=== PATIENT | male | born 1965 | race Caucasian/White ===

== ENCOUNTER 2018-02-22 17:05 | Inpatient (IN) ==
[2018-02-22] MEDS ORDERED: Morphine Inj 4 MG/ML Vial IV.PUSH ONE (17:20)
[2018-02-22] MEDS ORDERED: Sod Chloride 0.9% Inj 1,000 ML IV.SIG ONE (17:20)
--- NOTE | 2018-02-22 17:24 | ED ---
HPI General Chief Complaint: Chest Pain Stated Complaint: Abd pain/left arm numbness Time Seen by Provider: 02/22/18 17:19 Source: patient Mode of arrival: ambulatory Limitations: no limitations History of Present Illness HPI narrative: 52-year-old male patient presents to the ER today for 9 out of 10 epigastric abdominal pains that started this morning, nausea.. He does not know of any exacerbating alleviating factors. He appears to be very anxious in the ER. He denies any chest pains, appears to be short of breath. He denies any fevers, vomiting, diarrhea, or other symptoms. Related Data Home Medications Medication Instructions Recorded Confirmed No Known Home Medications 02/22/18 02/22/18 Allergies Allergy/AdvReac Type Severity Reaction Status Date / Time No Known Allergies Allergy Verified 02/22/18 17:21 Review of Systems ROS: all other systems reviewed are negative PMFSH History History Provided By: Patient Medical History Medical History Patient denies medical problems (Acute) Surgical History Surgical History History of repair of ACL (Acute) Social History Social History Substance History: Active Abuse Second Hand Smoke Exposure: No Smoking Status: Never smoker How Often Do You Have a Drink Containing Alcohol: 4 or more times a week Recent Out of Country Travel within the Last 8 Weeks: No Exam Narrative Exam Narrative: GENERAL: Well-developed middle-age male patient currently in moderate distress. He is very anxious in the ER, awake and oriented x3. SKIN: Focused skin assessment warm/dry. HEAD: Atraumatic. Normocephalic. EYES: Pupils equal and round. No scleral icterus. No injection or drainage. ENT: No nasal bleeding or discharge. Mucous membranes pink and moist. NECK: Trachea midline. No JVD. CARDIOVASCULAR: Regular rate and rhythm. No murmur appreciated. RESPIRATORY: Moderate accessory muscle use. Clear to auscultation. Breath sounds equal bilaterally. GASTROINTESTINAL: Abdomen soft, upper abdominal tenderness without guarding or rebound, nondistended. Hepatic and splenic margins not palpable. MUSCULOSKELETAL: No obvious deformities. No clubbing. No cyanosis. No edema. NEUROLOGICAL: Awake and alert. No obvious cranial nerve deficits. Motor grossly within normal limits. Normal speech. PSYCHIATRIC: Anxious mood and affect; insight and judgment normal. Course Initial Documented Vital Signs Pulse Rate 79 02/22/18 17:12 Respiratory Rate 22 02/22/18 17:12 Blood Pressure 122/71 02/22/18 17:12 Last Documented Vital Signs Temperature 98.1 F 02/22/18 17:21 Pulse Rate 77 02/22/18 18:10 Respiratory Rate 24 02/22/18 18:10 Blood Pressure 218/99 H 02/22/18 18:20 Pulse Oximetry 97 02/22/18 18:10 Medical Decision Making MDM Narrative Medical decision making narrative: Lab work shows significant lipase elevation concerning for pancreatitis. Lactate is elevated, I am concerned that he may be dehydrated and IV fluids, pain medications and Zofran were given in the ER. CAT scan was ordered to evaluate his abdomen further. He is quite anxious and considering his alcohol history and pancreatitis, I suspect that there may be an alcohol withdrawal issue as well. He was given Ativan in the ER. His blood pressure was quite elevated as well. My plan at this point would be to admit the patient for further evaluation and treatment. Case was discussed with Dr. Ramirez for admission. Medical Screen Exam Complete: Yes Emergency Medical Condition: Yes Differential Diagnosis Differential Diagnosis: Anxiety attack versus dysrhythmias versus ACS versus acute intra-abdominal processes Lab Data Lab results reviewed: Yes I reviewed the patient's lab results. Result diagrams: 02/22/18 17:20 02/22/18 17:20 Lab Results 02/22/18 02/22/18 02/22/18 Range/Units 17:20 17:20 17:20 WBC 19.4 H (4.0-11.0) th/mm3 RBC 5.13 (4.50-5.90) mil/mm3 Hgb 18.0 H (13.0-17.0) gm/dL Hct 52.1 H (39.0-51.0) % MCV 101.5 H (80.0-100.0) fL MCH 35.1 H (27.0-34.0) pg MCHC 34.6 (32.0-36.0) % RDW 13.1 (11.6-17.2) % Plt Count 262 (150-450) th/mm3 MPV 7.8 (7.0-11.0) fL Neut % (Auto) 87.9 H (16.0-70.0) % Lymph % (Auto) 6.5 L (9.0-44.0) % Upson % (Auto) 5.1 (0.0-8.0) % Eos % (Auto) 0.1 (0.0-4.0) % Baso % (Auto) 0.4 (0.0-2.0) % Neut # (Auto) 17.0 H (1.8-7.7) th/mm3 Lymph # (Auto) 1.3 (1.0-4.8) th/mm3 Upson # (Auto) 1.0 H (0.0-0.9) th/mm3 Eos # (Auto) 0.0 (0.0-0.4) th/mm3 Baso # (Auto) 0.1 (0.0-0.2) th/mm3 WBC Differential . Differential Comment Auto diff final Sodium 139 (136-145) meq/L Potassium 3.2 L (3.5-5.1) meq/L Chloride 105 (98-107) meq/L Carbon Dioxide 19.7 L (21.0-32.0) meq/L Anion Gap 14 (5-15) meq/L BUN 13 (7-18) mg/dL Creatinine 1.25 (0.60-1.30) mg/dL Random Glucose 160 H (74-106) mg/dL Lactic Acid (0.4-2.0) mmol/L Calcium 9.6 (8.5-10.1) mg/dL Total Bilirubin 1.0 (0.2-1.0) mg/dL AST 27 (15-37) U/L ALT 31 (12-78) U/L Alkaline Phosphatase 100 (45-117) U/L Troponin I Less than 0.02 L (0.02-0.05) ng/mL Total Protein 8.3 H (6.4-8.2) g/dL Albumin 4.7 (3.4-5.0) g/dL Lipase 82727 H (73-393) U/L 18 Range/Units 17:34 WBC (4.0-11.0) th/mm3 RBC (4.50-5.90) mil/mm3 Hgb (13.0-17.0) gm/dL Hct (39.0-51.0) % MCV (80.0-100.0) fL MCH (27.0-34.0) pg MCHC (32.0-36.0) % RDW (11.6-17.2) % Plt Count (150-450) th/mm3 MPV (7.0-11.0) fL Neut % (Auto) (16.0-70.0) % Lymph % (Auto) (9.0-44.0) % Upson % (Auto) (0.0-8.0) % Eos % (Auto) (0.0-4.0) % Baso % (Auto) (0.0-2.0) % Neut # (Auto) (1.8-7.7) th/mm3 Lymph # (Auto) (1.0-4.8) th/mm3 Upson # (Auto) (0.0-0.9) th/mm3 Eos # (Auto) (0.0-0.4) th/mm3 Baso # (Auto) (0.0-0.2) th/mm3 WBC Differential Differential Comment Sodium (136-145) meq/L Potassium (3.5-5.1) meq/L Chloride (98-107) meq/L Carbon Dioxide (21.0-32.0) meq/L Anion Gap (5-15) meq/L BUN (7-18) mg/dL Creatinine (0.60-1.30) mg/dL Random Glucose (74-106) mg/dL Lactic Acid 5.3 H* (0.4-2.0) mmol/L Calcium (8.5-10.1) mg/dL Total Bilirubin (0.2-1.0) mg/dL AST (15-37) U/L ALT (12-78) U/L Alkaline Phosphatase (45-117) U/L Troponin I (0.02-0.05) ng/mL Total Protein (6.4-8.2) g/dL Albumin (3.4-5.0) g/dL Lipase (73-393) U/L Imaging Data Attestation: I personally reviewed and interpreted this imaging study as follows : Radiologist's impression: Chest X-Ray 10/13/18 17:20 CONCLUSION: No acute cardiopulmonary disease identified. Discharge Plan Discharge Disposition Patient Disposition: 30 Still Patient Discharge Condition Condition: Fair Discharge Details Anticipated Discharge Date: 02/22/18 Diagnosis: Alcohol withdrawal, Acute pancreatitis Physicians Team ED Provider: Sage Lovett Primary Care Provider: UNKNOWN, Rxs /Orders / Referrals /Forms Prescriptions: No Action No Known Home Medications RF: 0 Discharge Instructions Patient Printed Instructions: Chest Pain (ED) Discharge Interventions Interventions: Vital Signs Last Done: 02/22/18 18:45 Status ED Status: With Doctor
--- NOTE | 2018-02-22 17:45 | XR ---
EXAM DATE: 02/22/2018 5:20 PM EDT AGE/SEX: 52 years / Male INDICATIONS: Palpations. Abdominal pain. CLINICAL DATA: This is the patient's initial encounter. Patient reports that signs and symptoms have been present for 1 day and indicates a pain score of 7/10. MEDICAL/SURGICAL HISTORY: None. None. COMPARISON: No prior exams available for comparison. FINDINGS: Single AP view the chest. The lungs are clear. Cardiomediastinal silhouette within normal limits. No evidence of pleural effusion or pneumothorax. CONCLUSION: No acute cardiopulmonary disease identified. Electronically signed by: Deonte Clarke MD 02/22/2018 5:44 PM EDT
[2018-02-22 17:47] LABS: Baso # (Auto) 0.1 th/mm3 (0.0-0.2); Baso % (Auto) 0.4 % (0.0-2.0); Eos % (Auto) 0.1 % (0.0-4.0); Hematocrit 52.1 % (39.0-51.0); Lymph # (Auto) 1.3 th/mm3 (1.0-4.8); Lymph % (Auto) 6.5 % (9.0-44.0); Mean Corpuscular HGB Conc 34.6 % (32.0-36.0); Mean Corpuscular Hemoglobin 35.1 pg (27.0-34.0); Mean Corpuscular Volume 101.5 fL (80.0-100.0); Mean Platelet Volume 7.8 fL (7.0-11.0); Mono % (Auto) 5.1 % (0.0-8.0); Neut % (Auto) 87.9 % (16.0-70.0); Platelet Count 262 th/mm3 (150-450); Red Blood Count 5.13 mil/mm3 (4.50-5.90); Red Cell Distribution Width 13.1 % (11.6-17.2); White Blood Count 19.4 th/mm3 (4.0-11.0)
[2018-02-22 18:07] LABS: Albumin 4.7 g/dL (3.4-5.0); Anion Gap 14 meq/L (5-15); Aspartate Aminotransferase 27 U/L (15-37); Blood Urea Nitrogen 13 mg/dL (7-18); Calcium 9.6 mg/dL (8.5-10.1); Carbon Dioxide 19.7 meq/L (21.0-32.0); Chloride 105 meq/L (98-107); Glucose,Random 160 mg/dL (74-106); Potassium 3.2 meq/L (3.5-5.1); Sodium 139 meq/L (136-145)
[2018-02-22 18:08] LABS: Alanine Aminotransferase 31 U/L (12-78)
[2018-02-22 18:11] LABS: Alkaline Phosphatase 100 U/L (45-117); Lipase 11168 U/L (73-393); Total Protein 8.3 g/dL (6.4-8.2)
--- NOTE | 2018-02-22 19:01 | CT ---
EXAM DATE: 02/22/2018 6:19 PM EDT AGE/SEX: 52 years / Male INDICATIONS: Upper abdominal pain and flu like symptoms per patient. CLINICAL DATA: This is the patient's initial encounter. Patient reports that signs and symptoms have been present for 1 day and indicates a pain score of 9/10. MEDICAL/SURGICAL HISTORY: None. None. ORAL CONTRAST: No oral contrast ingested. RADIATION DOSE: 10.30 CTDI (mGy) COMPARISON: No prior exams available for comparison. TECHNIQUE: Multiple contiguous axial images were obtained through the abdomen and pelvis following b olus infusion of 96 ml Omnipaque 350 (iohexol) nonionic water-soluble contrast as a single exam dos e. No oral contrast ingested. Using automated exposure control and adjustment of the mA and/or kV ac cording to patient size, radiation dose was kept as low as reasonably achievable to obtain optimal di agnostic quality images. DICOM format image data is available electronically for review and comparis on. FINDINGS: Lower Lungs: There is a bleb in the lateral left midlung measuring 3.7 x 1.4 cm. Minimal bilateral at electasis. Liver: Mild diffuse hepatic steatosis. Gallbladder within normal limits. Spleen: Homogeneous density without enlargement. Pancreas: Moderate severity diffuse peripancreatic edema/stranding opacity in the peripancreatic fat. No organized peripherally enhancing fluid collection. 4 mm calcification in the region of the pancre atic head may be within the distal common duct or pancreatic head. Kidneys: Normal in size and shape. No evidence of mass or hydronephrosis. Adrenal Glands: Unremarkable. Aorta: The aorta and proximal iliac vessels are grossly unremarkable without aneurysmal dilation. Bowel/Mesentery: No evidence of bowel dilatation. No free air or free fluid. Appendix within normal limits. Abdominal Wall: Intact. Retroperitoneum: No evidence of adenopathy in the retrocrural, para-aortic, or deep pelvic regions. Bladder: Contours are smooth. Reproductive Organs: No abnormal masses or calcifications seen. Inguinal: The inguinal region is unremarkable without evidence of adenopathy. Bony Structures: Unremarkable. CONCLUSION: 1. Moderate severity peripancreatic edema indicating acute pancreatitis. Calcification in either the pancreatic head or distal common duct. 2. Hepatic steatosis. 3. Subpleural bleb in the left midlung. Electronically signed by: Deonte Clarke MD 02/22/2018 7:00 PM EDT
[2018-02-22] MEDS ORDERED: Morphine Sulfate Inj 2 MG/ML Vial IV.PUSH PRN (19:04)
[2018-02-22] MEDS ORDERED: Bisacodyl 10 MG Supp RECTAL PRN (19:05)
[2018-02-22] MEDS ORDERED: Acetaminophen 325 MG Tablet PO PRN (19:05)
--- NOTE | 2018-02-22 19:07 | P.HPIM ---
History of Present Illness Primary Care Physician: UNKNOWN History of Present Illness: This is a 52-year-old male with no significant PMH who presented to ER with complaints of chest pain, epigastric pain in addition to nausea and vomiting. Notes pain is substernal/epigastric, severe, 10/10, non-radiating, associated w / nausea/vomiting. Denies fever, chills, cough or diarrhea. On arrival, BP 221 /107, HR 77, O2 sat 97% on RA, Afebrile. W BC 19.4. Hemoglobin 18. Chemistry essentially unremarkable. Lactic acid 5.3. Troponin negative. Lipase 11,168. UA negative for UTI. CXR with no acute findings. CT Abdomen/Pelvis moderate severity. Pancreatic edema indicating acute pancreatitis, calcification in pancreatic head or distal common duct, hepatic steatosis. While in ER pt noted to be in A-fib, HR 100's, no reported h/o A-fib. - Diagnosis (1) Pancreatitis (2) Chest pain (3) Lactic acidosis (4) A-fib Inpatient Certification: I certify that the inpatient services were ordered in accordance with Medicare regulations governing the order. This includes certification that hospital inpatient services are reasonable and necessary and in the case of services not specified as inpatient-only under 42 CFR 419.22(n), that they are appropriately provided as inpatient services in accordance to with the 2-midnight benchmark under 43 CFR 412.3(e) Estimated Total Length of Stay (Days): 2 Plans for Post Hospital Care: Not yet determined Review of Systems PAST FAMILY HISTORY: Reviewed. No h/o DM or CAD All other systems reviewed negative except as stated in HPI PMFSH - History History Provided By: Patient - Medical History Medical History: Medical History (Last Reviewed 02/22/18 @ 17:52 by Sage Lovett MD) Patient denies medical problems - Surgical History Surgical History: Surgical History (Last Reviewed 02/22/18 @ 17:52 by Sage Lovett MD) History of repair of ACL - Tobacco History Second Hand Smoke Exposure: No Smoking Status: Never smoker - Alcohol History How Often Do You Have a Drink Containing Alcohol: 4 or more times a week - Substance Use History Substance History: Active Abuse - Substance Use Type Marijuana Status: Active Route Used: Inhalation - Travel History Recent Travel Out of the Country Within the Last 8 Weeks: No - Immunization History Tetanus Immunization: Unsure Medications and Allergies Active Medications: Active Medications Acetaminophen (Tylenol) 650 mg PO Q4H PRN PRN Reason: Temp > 100.4 Al Hydroxide/Mg Hydroxide (Milk Of Magnesia Liq) 30 ml PO Q12H PRN PRN Reason: Mild Constipation Bisacodyl (Dulcolax Supp) 10 mg RECTAL DAILY PRN PRN Reason: SEVERE CONSITIPATION Sodium Chloride (Ns Inj) 1,000 mls @ 100 mls/hr IV.CONT .Q10H RITO Cefepime HCl 1,000 mg/ Sodium (Chloride) 100 mls @ 200 mls/hr IV.SIG Q12H RITO Lactulose (Lactulose Liq) 30 ml PO DAILY PRN PRN Reason: SEVERE CONSITIPATION Morphine Sulfate (Morphine Inj) 2 mg IV.PUSH Q4H PRN PRN Reason: PAIN 6-10 Ondansetron HCl (Zofran Inj) 4 mg IV.PUSH Q6H PRN PRN Reason: NAUSEA OR VOMITING Pantoprazole Sodium (Protonix Inj) 40 mg IV.PUSH Q12H RITO Senna/Docusate Sodium (Dasha-Colace) 1 tab PO BID RITO Sennosides (Senokot) 17.2 mg PO Q12H PRN PRN Reason: Moderate Constipation Sodium Chloride (Ns Flush) 2 ml IV.FLUSH PRN PRN PRN Reason: FLUSH AFTER USING IV ACCESS Allergies Allergy/AdvReac Type Severity Reaction Status Date / Time No Known Allergies Allergy Verified 02/22/18 17:21 Home Medications Medication Instructions Recorded Confirmed Type No Known Home Medications 02/22/18 02/22/18 History Exam Vital signs: Vital Signs 02/22/18 17:12 02/22/18 17:21 02/22/18 18:10 Temperature 98.1 F Pulse Rate 79 77 Respiratory Rate 22 24 Blood Pressure 122/71 221/107 H Pulse Oximetry 97 02/22/18 18:20 02/22/18 18:45 Temperature Pulse Rate 92 H Respiratory Rate 20 Blood Pressure 218/99 H 206/112 H Pulse Oximetry 99 Intake & Output 02/22/18 02/22/18 02/23/18 06:59 18:59 06:59 Intake Total 1000 / 1000 Output Total 100 / 100 Balance 900 / 900 Weight 86.183 kg Intake: IV 1000 / 1000 NS Inj 1,000 ML @ Wide Open IV. 1000 / 1000 SIG BOLUS ONE Rx#:[id number] Output: Emesis 100 / 100 Other: # Emeses 1 Narrative: PE: GENERAL: Middle-aged white male in no acute distress, appears younger than stated age. SKIN: Focused skin assessment warm and dry. HEENT: PERRLA, EOMI. No scleral icterus or conjunctival pallor. No lid lag or facial droop. CARDIOVASCULAR: Irregularly irregular, in A. fib. No obvious murmurs to auscultation. No chest tenderness to palpation. RESPIRATORY: No obvious rhonchi or wheezing. Clear to auscultation. Breath sounds equal bilaterally. GASTROINTESTINAL: Abdomen soft, epigastric tenderness to palpation, nondistended. BS normal. MUSCULOSKELETAL: Extremities without clubbing, cyanosis, or edema. No obvious deformities. NEUROLOGICAL: Awake, alert and oriented x4. No focal neurologic deficits. Moving both upper and lower extremities spontaneously. PSYCHIATRIC: Appropriate mood and affect. Insight and judgment normal. Results - Labs CBC & Chem 7: 02/22/18 17:20 02/22/18 17:20 Labs: Short CBC 02/22/18 Range/Units 17:20 WBC 19.4 H (4.0-11.0) th/mm3 Hgb 18.0 H (13.0-17.0) gm/dL Hct 52.1 H (39.0-51.0) % Plt Count 262 (150-450) th/mm3 BMP 02/22/18 17:20 Sodium 139 Potassium 3.2 L Chloride 105 Carbon Dioxide 19.7 L BUN 13 Creatinine 1.25 Calcium 9.6 Cardiac Enzymes 02/22/18 Range/Units 17:20 Troponin I Less than 0.02 L (0.02-0.05) ng/mL Liver Function 02/22/18 Range/Units 17:20 Total Bilirubin 1.0 (0.2-1.0) mg/dL AST 27 (15-37) U/L ALT 31 (12-78) U/L Alkaline Phosphatase 100 (45-117) U/L Albumin 4.7 (3.4-5.0) g/dL - Imaging Impressions Abdomen/Pelvis CT 02/22/18 17:20 CONCLUSION: 1. Moderate severity peripancreatic edema indicating acute pancreatitis. Calcification in either the pancreatic head or distal common duct. 2. Hepatic steatosis. 3. Subpleural bleb in the left midlung. Chest X-Ray 02/22/18 17:20 CONCLUSION: No acute cardiopulmonary disease identified. Caprini VTE Risk Assessment Caprini VTE Risk Assessment: No/Low Risk (score <= 1) Caprini Risk Assessment Model: Point Value = 1 Point Value = 2 Point Value = 3 Point Value = 5 Age 41-60 Minor surgery BMI > 25 kg/m2 Swollen legs Varicose veins or History of unexplained or recurrent spontaneous Oral contraceptives or hormone replacement Sepsis (< 1 month) Serious lung disease, including pneumonia (< 1 month) Abnormal pulmonary function Acute myocardial infarction Congestive heart failure (< 1 month) History of inflammatory bowel disease Medical patient at bed rest Age 61-74 Arthroscopic surgery Major open surgery (> 45 min) Laparoscopic surgery (> 45 min) Malignancy Confined to bed (> 72 hours) Immobilizing plaster cast Central venous access Age >= 75 History of VTE Family history of VTE Factor V Leiden Prothrombin [id number] Lupus anticoagulant Anticardiolipin antibodies Elevated serum homocysteine Heparin-induced thrombocytopenia Other congenital or acquired thrombophilia Stroke (< 1 month) Elective arthroplasty Hip, pelvis, or leg fracture Acute spinal cord injury (< 1 month) Prophylaxis Regimen: Total Risk Factor Score Risk Level Prophylaxis Regimen 0-1 Low Early ambulation 2 Moderate Order ONE of the following: *Sequential Compression Device (SCD) *Heparin 5000 units SQ BID 3-4 Higher Order ONE of the following medications: *Heparin 5000 units SQ TID *Enoxaparin/Lovenox 40 mg SQ daily (WT < 150 kg, CrCl > 30 mL/min) *Enoxaparin/Lovenox 30 mg SQ daily (WT < 150 kg, CrCl > 10-29 mL/min) *Enoxaparin/Lovenox 30 mg SQ BID (WT < 150 kg, CrCl > 30 mL/min) AND/OR *Sequential Compression Device (SCD) 5 or more Highest Order ONE of the following medications: *Heparin 5000 units SQ TID (Preferred with Epidurals) *Enoxaparin/Lovenox 40 mg SQ daily (WT < 150 kg, CrCl > 30 mL/min) *Enoxaparin/Lovenox 30 mg SQ daily (WT < 150 kg, CrCl > 10-29 mL/min) *Enoxaparin/Lovenox 30 mg SQ BID (WT < 150 kg, CrCl > 30 mL/min) AND *Sequential Compression Device (SCD) Assessment and Plan - Assessment (1) Pancreatitis Code(s): K85.90 - Acute pancreatitis without necrosis or infection, unspecified Status: Acute (2) Chest pain Code(s): R07.9 - Chest pain, unspecified Status: Acute (3) Lactic acidosis Code(s): E87.2 - Acidosis Status: Acute (4) A-fib Code(s): I48.91 - Unspecified atrial fibrillation Status: Acute - Plan A/P: 1. Pancreatitis: Lipase 11,168, CT Abd/Pelvis w/ moderate severity peripancreatic edema indicative of acute pancreatitis, images reviewed. NPO, IVF, Protonix IV, check repeat lipase in am. 2. SIRS: HR 103, WBC 19, in light of pancreatitis w/ lactic acidosis will start on Cefepime IV, IVF for hydration. 3. Chest Pain: Likely secondary to pancreatitis, initial trop negative, check serial cardiac enzymes, Consult Cardiology as needed. 4. A-fib: New Onset. Denies h/o A-fib, possibly related to severe dehydration from pancreatitis, nausea/vomiting, start Metoprolol and ASA, Check Echo to eval for valvular abnormalities/cardiomyopathy, Consult Cardiology as needed for further eval/recommendations. 5. HTN: Uncontrolled. BP 190-200's systolic, likely compounded by pain complaints, Metoprolol 50mg bid, monitor BP closely, antihypertensives as needed for BP >180 6. Lactic Acidosis: Lactic Acid 5.3, likely related to dehydration, however in light of leukocytosis and acute pancreatitis will start Cefepime IV. CXR w/ no acute findings, images reviewed. IVF for hydration, repeat Lactic Acid. 7. DVT Prophylaxis: SCD/Teds 8. Social work for d/c planning as needed 9. Case discussed w/ ER physician at length, labs/records/imaging reviewed by me.
[2018-02-22 19:17] LABS: Bilirubin,Urine Negative (Negative); Clarity,Urine Clear (Clear); Color,Urine Yellow (Yellw/Straw); Glucose,Urine (UA) 50 mg/dL (Negative); Leukocyte Esterase,Urine Negative (Negative); Mucus,Urine Few /lpf (Occasional); Nitrite,Urine Negative (Negative); Specific Gravity,Urine 1.029 (1.002-1.035)
[2018-02-22] MEDS: Sod Chloride 0.9% Inj 1,000 ML IV.CONT SCH ×2 (19:28→23:38)
[2018-02-22] MEDS: Metoprolol Tartrate 50 MG Tablet PO SCH ×2 (20:41→22:11)
[2018-02-22] MEDS: Pantoprazole Inj 40 MG Vial IV.PUSH SCH (20:44)
[2018-02-22] MEDS: Senna/Docusate Sodium 8.6/50 MG Tablet PO SCH (23:09)
[2018-02-23] MEDS ORDERED: HYDROmorphone PF Inj 2 MG/ML Vial IV.PUSH ONE (01:34)
[2018-02-23] MEDS: Sod Chloride 0.9% Inj 1,000 ML IV.CONT SCH ×3 (05:21→22:26)
[2018-02-23 07:18] LABS: Baso % (Auto) 0.1 % (0.0-2.0); Hematocrit 40.5 % (39.0-51.0); Hemoglobin 14.1 gm/dL (13.0-17.0); Lymph # (Auto) 0.7 th/mm3 (1.0-4.8); Lymph % (Auto) 4.3 % (9.0-44.0); Mean Corpuscular HGB Conc 34.9 % (32.0-36.0); Mean Corpuscular Hemoglobin 35.1 pg (27.0-34.0); Mean Corpuscular Volume 100.7 fL (80.0-100.0); Mean Platelet Volume 7.4 fL (7.0-11.0); Mono % (Auto) 5.8 % (0.0-8.0); Neut # (Auto) 15.8 th/mm3 (1.8-7.7); Neut % (Auto) 89.8 % (16.0-70.0); Platelet Count 235 th/mm3 (150-450); Red Blood Count 4.02 mil/mm3 (4.50-5.90); Red Cell Distribution Width 12.7 % (11.6-17.2); White Blood Count 17.6 th/mm3 (4.0-11.0)
[2018-02-23 07:51] LABS: Alanine Aminotransferase 25 U/L (12-78); Albumin 3.5 g/dL (3.4-5.0); Alkaline Phosphatase 75 U/L (45-117); Anion Gap 6 meq/L (5-15); Aspartate Aminotransferase 12 U/L (15-37); Blood Urea Nitrogen 13 mg/dL (7-18); Calcium 8.1 mg/dL (8.5-10.1); Carbon Dioxide 28.5 meq/L (21.0-32.0); Chloride 106 meq/L (98-107); Glomerular Filtration Rate 86 mL/min (>89); Glucose,Random 164 mg/dL (74-106); Lipase 4274 U/L (73-393); Potassium 4.6 meq/L (3.5-5.1); Sodium 140 meq/L (136-145); Total Protein 6.5 g/dL (6.4-8.2)
[2018-02-23] MEDS: Pantoprazole Inj 40 MG Vial IV.PUSH SCH ×2 (09:03→20:52)
[2018-02-23] MEDS: Metoprolol Tartrate 50 MG Tablet PO SCH ×2 (09:04→20:52)
[2018-02-23] MEDS: Senna/Docusate Sodium 8.6/50 MG Tablet PO SCH ×2 (09:04→20:52)
[2018-02-23] MEDS: HYDROmorphone PF Inj 2 MG/ML Vial IV.PUSH PRN ×4 (11:35→23:27)
--- NOTE | 2018-02-23 11:59 | P.CONCA ---
History of Present Illness Service: Cardiology Consult date: 02/23/18 Reason for Consult: Elevated troponin Primary Care Provider: UNKNOWN Chief Complaint: Non-ST elevation myocardial infarction History of Present Illness: This is a 52-year-old gentleman without past medical history who presents to the emergency department complains of epigastric pain associated with nausea and vomiting. Patient states that he had a acute onset of this epigastric discomfort rates it a 02/19. He came in yesterday was noted to have elevated systolic blood pressure greater than 200 mmHg. Initial chemistry workup was negative. His lactic acid was elevated. He had also significant elevated lipase level. He has history of heavy alcohol use. CT scan of the abdomen showed pancreatic edema consistent with acute pancreatitis. Patient was also dehydrated. They trended troponins which were in the intermediate range and came up to slightly more than 0.1 mg/dL. We are consulted for further recommendations. Patient has no prior history of known heart disease. No chest pain. Electrocardiogram was unremarkable. Review of Systems All other systems reviewed negative except as stated in HPI [facility] - History History Provided By: Patient - Medical History Medical History: Medical History (Last Reviewed 02/22/18 @ 17:52 by Sage Lovett MD) Patient denies medical problems - Surgical History Surgical History: Surgical History (Last Reviewed 02/22/18 @ 17:52 by Sage Lovett MD) History of repair of ACL - Tobacco History Second Hand Smoke Exposure: No Tobacco Use In Past 30 Days: No Smoking Status: Former smoker Tobacco Type: Cigarettes - Alcohol History How Often Do You Have a Drink Containing Alcohol: 4 or more times a week - Substance Use History Substance History: Active Abuse - Substance Use Type Marijuana Type: marijuana Status: Active Route Used: Inhalation Frequency: every once in a while Reason for Use: Calm Down - Travel History Recent Travel in the [place] Within the Last 8 Weeks: No Recent Travel Out of the Country Within the Last 8 Weeks: No - Immunization History Tetanus Immunization: Unsure Medications and Allergies Active Medications: Active Medications Acetaminophen (Tylenol) 650 mg PO Q4H PRN PRN Reason: Temp > 100.4 Al Hydroxide/Mg Hydroxide (Milk Of Magnesia Liq) 30 ml PO Q12H PRN PRN Reason: Mild Constipation Aspirin (Ecotrin) 81 mg PO DAILY [facility] Last Admin: 02/23/18 09:04 Dose: 81 mg Bisacodyl (Dulcolax Supp) 10 mg RECTAL DAILY PRN PRN Reason: SEVERE CONSITIPATION Hydromorphone HCl (Dilaudid Pf Inj) 1 mg IV.PUSH Q4H PRN PRN Reason: BREAKTHROUGH PAIN Last Admin: 02/23/18 11:35 Dose: 1 mg Sodium Chloride (Ns Inj) 1,000 mls @ 100 mls/hr IV.CONT .Q10H [facility] Last Admin: 02/23/18 05:21 Dose: Not Given Cefepime HCl 1,000 mg/ Sodium (Chloride) 100 mls @ 200 mls/hr IV.SIG Q12H [facility] Last Admin: 02/23/18 09:03 Dose: 200 mls/hr Calcium Gluconate 1 gm/ Sodium (Chloride) 100 mls @ 100 mls/hr IV.SIG ONCE ONE Stop: 02/23/18 13:59 Lactulose (Lactulose Liq) 30 ml PO DAILY PRN PRN Reason: SEVERE CONSITIPATION Lorazepam (Ativan Inj) 1 mg IV.PUSH Q4H PRN PRN Reason: AGITATION/WITHDRAWAL Last Admin: 02/22/18 23:37 Dose: 1 mg Metoprolol Tartrate (Lopressor) 50 mg PO BID [facility] Last Admin: 02/23/18 09:04 Dose: 50 mg Morphine Sulfate (Morphine Inj) 2 mg IV.PUSH Q4H PRN PRN Reason: PAIN 6-10 Last Admin: 02/23/18 00:40 Dose: 2 mg Ondansetron HCl (Zofran Inj) 4 mg IV.PUSH Q6H PRN PRN Reason: NAUSEA OR VOMITING Pantoprazole Sodium (Protonix Inj) 40 mg IV.PUSH Q12H [facility] Last Admin: 02/23/18 09:03 Dose: 40 mg Senna/Docusate Sodium (Dasha-Colace) 1 tab PO BID [facility] Last Admin: 02/23/18 09:04 Dose: Not Given Sennosides (Senokot) 17.2 mg PO Q12H PRN PRN Reason: Moderate Constipation Sodium Chloride (Ns Flush) 2 ml IV.FLUSH PRN PRN PRN Reason: FLUSH AFTER USING IV ACCESS Allergies Allergy/AdvReac Type Severity Reaction Status Date / Time No Known Allergies Allergy Verified 02/22/18 17:21 Home Medications Medication Instructions Recorded Confirmed Type No Known Home Medications 02/22/18 02/22/18 History Exam Vital signs: Vital Signs 02/22/18 17:12 02/22/18 17:21 02/22/18 18:10 Temperature 98.1 F Pulse Rate 79 77 Respiratory Rate 22 24 Blood Pressure 122/71 221/107 H Pulse Oximetry 97 02/22/18 18:20 02/22/18 18:45 02/22/18 19:26 Temperature Pulse Rate 92 H 101 H Respiratory Rate 20 20 Blood Pressure 218/99 H 206/112 H 195/101 H Pulse Oximetry 99 02/22/18 22:10 02/22/18 23:00 02/23/18 00:00 Temperature 97.8 F Pulse Rate 108 H 105 H 98 H Respiratory Rate 16 18 Blood Pressure 181/119 H 183/128 H Pulse Oximetry 97 02/23/18 01:00 02/23/18 03:00 02/23/18 04:00 Temperature 98.0 F Pulse Rate 47 L 114 H 110 H Respiratory Rate 18 Blood Pressure 140/104 H Pulse Oximetry 91 L 02/23/18 05:00 02/23/18 06:00 02/23/18 07:00 Temperature 97.8 F Pulse Rate 108 H 102 H 94 H Respiratory Rate 18 Blood Pressure 151/116 H Pulse Oximetry 93 L 02/23/18 08:00 02/23/18 09:00 02/23/18 10:00 Temperature Pulse Rate 94 H 96 H 90 Respiratory Rate Blood Pressure Pulse Oximetry Intake & Output 02/22/18 02/23/18 02/23/18 18:59 06:59 18:59 Intake Total 1000 / 1000 100 / 100 Output Total 100 / 100 200 / 200 Balance 900 / 900 -100 / -100 Weight 86.183 kg 84.5 kg Intake: IV 1000 / 1000 100 / 100 NS Inj 1,000 ML @ 100 mls/hr IV 0 / 0 .CONT .Q10H [facility] Rx#:[id number] Maxipime Inj 1,000 MG In NS Inj 100 / 100 100 ML @ 200 mls/hr IV.SIG Q12H [facility] Rx#:[id number] NS Inj 1,000 ML @ Wide Open IV. 1000 / 1000 SIG BOLUS ONE Rx#:[id number] Output: Urine 200 / 200 Emesis 100 / 100 Other: Date of Last Bowel Movement 02/22/18 # Emeses 1 Weight On Admission 86.13 kg - Constitutional no acute distress - Routine HEENT Exam Eye: Present: EOMI, PERRL ENT: Present: mucous membranes dry - Routine Neck Exam Absent: JVD - Routine Respiratory Exam Present: CTA bilaterally - Routine Cardiovascular Exam Present: RRR. Absent: murmur - Routine Abdominal Exam Present: normoactive bowel sounds - Routine Extremities Exam Absent: edema - Routine Neurological Exam Present: CN II-XII intact. Absent: sensory deficit, motor deficit Results 02/23/18 06:56 02/23/18 06:56 Cardiac Enzymes 02/22/18 02/22/18 02/23/18 Range/Units 17:20 17:20 00:33 AST 27 (15-37) U/L Troponin I Less than 0.02 L 0.08 H (0.02-0.05) ng/mL 02/23/18 02/23/18 Range/Units 06:56 06:56 AST 12 L (15-37) U/L Troponin I 0.15 H (0.02-0.05) ng/mL CBC 02/22/18 02/23/18 Range/Units 17:20 06:56 WBC 19.4 H 17.6 H (4.0-11.0) th/mm3 RBC 5.13 4.02 L (4.50-5.90) mil/mm3 Hgb 18.0 H 14.1 D (13.0-17.0) gm/dL Hct 52.1 H 40.5 (39.0-51.0) % Plt Count 262 235 (150-450) th/mm3 Neut # (Auto) 17.0 H 15.8 H (1.8-7.7) th/mm3 Lymph # (Auto) 1.3 0.7 L (1.0-4.8) th/mm3 [place] # (Auto) 1.0 H 1.0 H (0.0-0.9) th/mm3 Eos # (Auto) 0.0 0.0 (0.0-0.4) th/mm3 Baso # (Auto) 0.1 0.0 (0.0-0.2) th/mm3 Comprehensive Metabolic Panel 02/22/18 02/23/18 Range/Units 17:20 06:56 Sodium 139 140 (136-145) meq/L Potassium 3.2 L 4.6 D (3.5-5.1) meq/L Chloride 105 106 (98-107) meq/L Carbon Dioxide 19.7 L 28.5 (21.0-32.0) meq/L BUN 13 13 (7-18) mg/dL Creatinine 1.25 0.92 (0.60-1.30) mg/dL Calcium 9.6 8.1 L D (8.5-10.1) mg/dL AST 27 12 L (15-37) U/L ALT 31 25 (12-78) U/L Alkaline Phosphatase 100 75 (45-117) U/L Total Protein 8.3 H 6.5 D (6.4-8.2) g/dL Albumin 4.7 3.5 D (3.4-5.0) g/dL Intake and Output 02/22/18 02/23/18 02/23/18 22:59 06:59 14:59 Intake Total 1100 / 1100 0 / 0 Output Total 100 / 100 200 / 200 Balance 1000 / 1000 -200 / -200 Intake: IV 1100 / 1100 0 / 0 NS Inj 1,000 ML @ 100 mls/hr IV 0 / 0 .CONT .Q10H [facility] Rx#:[id number] Maxipime Inj 1,000 MG In NS Inj 100 / 100 100 ML @ 200 mls/hr IV.SIG Q12H [facility] Rx#:[id number] NS Inj 1,000 ML @ Wide Open IV. 1000 / 1000 SIG BOLUS ONE Rx#:[id number] Output: Urine 200 / 200 Emesis 100 / 100 Other: Date of Last Bowel Movement 02/22/18 # Emeses 1 Weight 84.6 kg 84.5 kg Weight On Admission 86.13 kg - Imaging and Cardiology Imaging: Impressions Abdomen/Pelvis CT 02/22/18 17:20 CONCLUSION: 1. Moderate severity peripancreatic edema indicating acute pancreatitis. Calcification in either the pancreatic head or distal common duct. 2. Hepatic steatosis. 3. Subpleural bleb in the left midlung. Chest X-Ray 02/22/18 17:20 CONCLUSION: No acute cardiopulmonary disease identified. EKG interpretations - Dysrhythmias Sinus rhythms and dysrhythmias: sinus rhythm (Premature atrial complexes) - Blocks, axis, hypertrophy, ST abn Repolarization changes or abnormalities: nonspecific abnormality, ST segment, and/or T wave Assessment and Plan - Assessment (1) Elevated troponin Code(s): R74.8 - Abnormal levels of other serum enzymes Status: Acute (2) Non-ST elevation myocardial infarction (NSTEMI) Code(s): I21.4 - Non-ST elevation (NSTEMI) myocardial infarction Status: Acute - Plan Patient presents with symptoms consistent with acute pancreatitis confirmed by abdominal imaging. Patient is also dehydrated. Initial cardiac biomarkers were negative and trended into the intermediate range. This is likely a demand mediated event in the setting of dehydration. The electrocardiogram shows no significant ischemic changes. Patient has underlying sinus rhythm with premature atrial complexes. Patient has no significant cardiovascular risk factors. This is clearly not a thrombotic mediated event. We will plan for Lexiscan just to rule out significant ischemic territory. If the stress test is otherwise unremarkable, he can follow-up with his outpatient primary care physician.
[2018-02-23] MEDS ORDERED: LORazepam 1 MG Tablet PO PRN (12:37)
[2018-02-23] MEDS ORDERED: Haloperidol Inj 5 MG/ML Ampul IV.PUSH PRN (12:37)
[2018-02-23] MEDS ORDERED: Calcium Gluconate Inj 1 GM in Sodium Chlor 0.9% Inj 90 ML IV.SIG ONE (13:00)
--- NOTE | 2018-02-23 15:16 | P.PNIM ---
Subjective Interval history: Patient reports is feeling better after receiving Dilaudid. Epigastric pain is much improved. He denies shortness of breath. Physical Exam Vital signs: Vital Signs 02/22/18 17:12 02/22/18 17:21 02/22/18 18:10 Temperature 98.1 F Pulse Rate 79 77 Respiratory Rate 22 24 Blood Pressure 122/71 221/107 H Pulse Oximetry 97 02/22/18 18:20 02/22/18 18:45 02/22/18 19:26 Temperature Pulse Rate 92 H 101 H Respiratory Rate 20 20 Blood Pressure 218/99 H 206/112 H 195/101 H Pulse Oximetry 99 02/22/18 22:10 02/22/18 23:00 02/23/18 00:00 Temperature 97.8 F Pulse Rate 108 H 105 H 98 H Respiratory Rate 16 18 Blood Pressure 181/119 H 183/128 H Pulse Oximetry 97 02/23/18 01:00 02/23/18 03:00 02/23/18 04:00 Temperature 98.0 F Pulse Rate 47 L 114 H 110 H Respiratory Rate 18 Blood Pressure 140/104 H Pulse Oximetry 91 L 02/23/18 05:00 02/23/18 06:00 02/23/18 07:00 Temperature 97.8 F Pulse Rate 108 H 102 H 94 H Respiratory Rate 18 Blood Pressure 151/116 H Pulse Oximetry 93 L 02/23/18 08:00 02/23/18 09:00 02/23/18 10:00 Temperature Pulse Rate 94 H 96 H 90 Respiratory Rate Blood Pressure Pulse Oximetry 02/23/18 11:00 02/23/18 12:00 02/23/18 12:10 Temperature 98.1 F Pulse Rate 84 92 H Respiratory Rate 18 18 Blood Pressure 157/112 H Pulse Oximetry 97 02/23/18 13:00 Temperature Pulse Rate 90 Respiratory Rate Blood Pressure Pulse Oximetry Intake & Output 02/22/18 02/23/18 02/23/18 18:59 06:59 18:59 Intake Total 1000 / 1000 100 / 100 1200 / 1200 Output Total 100 / 100 200 / 200 Balance 900 / 900 -100 / -100 1200 / 1200 Weight 86.183 kg 84.5 kg Intake: IV 1000 / 1000 100 / 100 1200 / 1200 NS Inj 1,000 ML @ 100 mls/hr IV 0 / 0 1000 / 1000 .CONT .Q10H [facility] Rx#:[id number] Calcium Gluconate Inj 1 GM In 100 / 100 NS Inj 90 ML @ 100 mls/hr IV. SIG ONCE ONE Rx#:[id number] Maxipime Inj 1,000 MG In NS Inj 100 / 100 100 / 100 100 ML @ 200 mls/hr IV.SIG Q12H [facility] Rx#:[id number] NS Inj 1,000 ML @ Wide Open IV. 1000 / 1000 SIG BOLUS ONE Rx#:[id number] Output: Urine 200 / 200 Emesis 100 / 100 Other: Date of Last Bowel Movement 02/22/18 # Emeses 1 Weight On Admission 86.13 kg Narrative: GENERAL: This is a well-nourished, well-developed patient, in no apparent distress. CARDIOVASCULAR: Normal rate and regular rhythm without murmurs, gallops, or rubs. RESPIRATORY: Good respiratory efforts. Breath sounds equal and clear to auscultation bilaterally. GASTROINTESTINAL: Abdomen soft, mild tenderness to deep palpation in the midepigastric region. Normal active bowel sounds MUSCULOSKELETAL: Extremities without cyanosis, or edema. NEURO: Alert & Oriented x4 to person, place, time, situation. Moves all ext x4 PSYCH: Appropriate mood and affect. Results - Labs CBC & Chem 7: 02/23/18 06:56 02/23/18 06:56 Laboratory Results - last 24 hr 02/22/18 02/22/18 02/22/18 17:20 17:20 17:20 WBC 19.4 H RBC 5.13 Hgb 18.0 H Hct 52.1 H MCV 101.5 H MCH 35.1 H MCHC 34.6 RDW 13.1 Plt Count 262 MPV 7.8 Neut % (Auto) 87.9 H Lymph % (Auto) 6.5 L Morton % (Auto) 5.1 Eos % (Auto) 0.1 Baso % (Auto) 0.4 Neut # (Auto) 17.0 H Lymph # (Auto) 1.3 [place] # (Auto) 1.0 H Eos # (Auto) 0.0 Baso # (Auto) 0.1 WBC Differential . Differential Comment Auto diff final Sodium 139 Potassium 3.2 L Chloride 105 Carbon Dioxide 19.7 L Anion Gap 14 BUN 13 Creatinine 1.25 Estimated GFR Random Glucose 160 H Lactic Acid Calcium 9.6 Total Bilirubin 1.0 AST 27 ALT 31 Alkaline Phosphatase 100 Troponin I Less than 0.02 L Total Protein 8.3 H Albumin 4.7 Lipase 32085 H Urine Color Urine Clarity Urine pH Ur Specific [place] Urine Protein Urine Glucose (UA) Urine Ketones Urine Occult Blood Urine Nitrate Urine Bilirubin Urine Urobilinogen Ur Leukocyte Esterase Urine RBC Urine WBC Urine Mucus Micro UA Comment Ur Microscopic Review Urine Culture Comments 02/22/18 02/22/18 02/23/18 17:34 18:50 00:33 WBC RBC Hgb Hct MCV MCH MCHC RDW Plt Count MPV Neut % (Auto) Lymph % (Auto) Morton % (Auto) Eos % (Auto) Baso % (Auto) Neut # (Auto) Lymph # (Auto) [place] # (Auto) Eos # (Auto) Baso # (Auto) WBC Differential Differential Comment Sodium Potassium Chloride Carbon Dioxide Anion Gap BUN Creatinine Estimated GFR Random Glucose Lactic Acid 5.3 H* 1.4 Calcium Total Bilirubin AST ALT Alkaline Phosphatase Troponin I Total Protein Albumin Lipase Urine Color Yellow Urine Clarity Clear Urine pH 7.0 Ur Specific [place] 1.029 Urine Protein Negative Urine Glucose (UA) 50 Urine Ketones 20 Urine Occult Blood Negative Urine Nitrate Negative Urine Bilirubin Negative Urine Urobilinogen Less than 2 Ur Leukocyte Esterase Negative Urine RBC 1 Urine WBC Less than 1 Urine Mucus Few H Micro UA Comment Culture not ind Ur Microscopic Review Not Reportable Urine Culture Comments Culture not ind 02/23/18 02/23/18 02/23/18 00:33 06:56 06:56 WBC 17.6 H RBC 4.02 L Hgb 14.1 D Hct 40.5 MCV 100.7 H MCH 35.1 H MCHC 34.9 RDW 12.7 Plt Count 235 MPV 7.4 Neut % (Auto) 89.8 H Lymph % (Auto) 4.3 L Morton % (Auto) 5.8 Eos % (Auto) 0.0 Baso % (Auto) 0.1 Neut # (Auto) 15.8 H Lymph # (Auto) 0.7 L [place] # (Auto) 1.0 H Eos # (Auto) 0.0 Baso # (Auto) 0.0 WBC Differential . Differential Comment Auto diff final Sodium 140 Potassium 4.6 D Chloride 106 Carbon Dioxide 28.5 Anion Gap 6 BUN 13 Creatinine 0.92 Estimated GFR 86 L Random Glucose 164 H Lactic Acid Calcium 8.1 L D Total Bilirubin 1.1 H AST 12 L ALT 25 Alkaline Phosphatase 75 Troponin I 0.08 H Total Protein 6.5 D Albumin 3.5 D Lipase 4274 H Urine Color Urine Clarity Urine pH Ur Specific [place] Urine Protein Urine Glucose (UA) Urine Ketones Urine Occult Blood Urine Nitrate Urine Bilirubin Urine Urobilinogen Ur Leukocyte Esterase Urine RBC Urine WBC Urine Mucus Micro UA Comment Ur Microscopic Review Urine Culture Comments 02/23/18 02/23/18 06:56 06:56 WBC RBC Hgb Hct MCV MCH MCHC RDW Plt Count MPV Neut % (Auto) Lymph % (Auto) [place] % (Auto) Eos % (Auto) Baso % (Auto) Neut # (Auto) Lymph # (Auto) [place] # (Auto) Eos # (Auto) Baso # (Auto) WBC Differential Differential Comment Sodium Potassium Chloride Carbon Dioxide Anion Gap BUN Creatinine Estimated GFR Random Glucose Lactic Acid 1.2 Calcium Total Bilirubin AST ALT Alkaline Phosphatase Troponin I 0.15 H Total Protein Albumin Lipase Urine Color Urine Clarity Urine pH Ur Specific [place] Urine Protein Urine Glucose (UA) Urine Ketones Urine Occult Blood Urine Nitrate Urine Bilirubin Urine Urobilinogen Ur Leukocyte Esterase Urine RBC Urine WBC Urine Mucus Micro UA Comment Ur Microscopic Review Urine Culture Comments - Imaging Impressions Abdomen/Pelvis CT 02/22/18 17:20 CONCLUSION: 1. Moderate severity peripancreatic edema indicating acute pancreatitis. Calcification in either the pancreatic head or distal common duct. 2. Hepatic steatosis. 3. Subpleural bleb in the left midlung. Chest X-Ray 02/22/18 17:20 CONCLUSION: No acute cardiopulmonary disease identified. Assessment and Plan - Assessment (1) Pancreatitis Code(s): K85.90 - Acute pancreatitis without necrosis or infection, unspecified Status: Acute (2) Chest pain Code(s): R07.9 - Chest pain, unspecified Status: Acute (3) Lactic acidosis Code(s): E87.2 - Acidosis Status: Acute (4) A-fib Code(s): I48.91 - Unspecified atrial fibrillation Status: Acute - Plan 52-year-old male with: Acute pancreatitis: Probably alcoholic pancreatitis. He admits to drinking half a bottle of wine daily. CT of the abdomen shows moderate severity diffuse peripancreatic edema/stranding opacity in the peripancreatic fat. No organized peripherally enhancing fluid collection. 4 mm calcification in the region of the pancreatic head may be within the distal common duct or pancreatic head. -Lipase 11,000 on presentation. Down to 4000. -Continue supportive care with IV fluid. Pain control. -Check lipids Chest pain/elevated troponin: - Discussed with senior java software developer, Dr. miramontes. Likely secondary to dehydration from pancreatitis. - Nuclear stress test ordered. Hypertension: Uncontrolled. Does not take antihypertensives at home. - Continue metoprolol 50 mg twice daily. Systolic blood pressures were in the 200s on arrival. Suspect untreated hypertension. - Add amlodipine. Clonidine PRN. Afib: Brief episode. Back in sinus rhythm. Likely secondary to dehydration from pancreatitis. - Continue to monitor on telemetry. IV fluid. Leukocytosis and lactic acidosis: Leukocytosis quickly improved with IV hydration. Lactic acidosis resolved. - Do not suspect infection at this point. Discontinue empiric antibiotics. Alcohol abuse: - Start CIWA protocol. DVT Prophylaxis: SCD/Teds
[2018-02-23] MEDS ORDERED: Regadenoson Inj 0.4 MG/5 ML Syringe IV.PUSH ONE (15:52)
--- NOTE | 2018-02-23 16:00 | ECG ---
Date Performed: 02/22/2018 Time Performed: 17:16:29 PTAGE: 52 years EKG: There is an underlying Sinus rhythm with variable TN intervals with some first degree AV block and blocked PACs with junctional escape b eat. Nonspecific T-wave change ABNORMAL RHYTHM ECG NO PREVIOUS TRACING DOCTOR: Ishan Tai Interpretating Date/Time 02/23/2018 15:57:49
--- NOTE | 2018-02-23 17:05 | NM ---
EXAM DATE: 02/23/2018 2:24 PM EDT AGE/SEX: 52 years / Male INDICATIONS:Myocardial infarction. . Epigastric pain associated with nausea and vomiting. CLINICAL DATA: This is the patient's initial encounter. Patient reports that signs and symptoms have been present for 1 day and indicates a pain score of 10/10. MEDICAL/SURGICAL HISTORY: . . Left ACL repair. COMPARISON: No prior exams available for comparison. DOSE: 8.8 mCi Tc 99m Myoview at rest 26.2 mCi [id number] at stress 0.4 mg Lexiscan STRESS SYMPTOMS: Flushing sensation. EJECTION FRACTION: 54 % TECHNIQUE: The patient underwent pharmacologic stress with infusion of prescribed dose. Continuous ECG tracing was monitored during stress. Gated SPECT imaging was performed after stress and conventi onal SPECT imaging was performed at rest. The examination was performed on a SPECT/CT scanner, both attenuation and non-corrected datasets were reviewed. FINDINGS: Distribution: The maximum perfused segment at stress is in the anterior lateral wall Perfusion Study: The pattern of perfusion at stress is within normal limits. Gated Study: There are intact wall motion and wall thickening without hypokinetic or dyskinetic segm ents. The ejection fraction is calculated at 54%. RISK CATEGORY: Low (<1% Annual Motality Rate) CONCLUSION: 1. Mildly depressed ejection fraction 2. Negative for significant stress-induced ischemia. Electronically signed by: Jeovanny Mays MD 02/23/2018 5:03 PM EDT
[2018-02-24] MEDS: Sod Chloride 0.9% Inj 1,000 ML IV.CONT SCH ×2 (00:28→10:20)
[2018-02-24] MEDS: HYDROmorphone PF Inj 2 MG/ML Vial IV.PUSH PRN ×5 (03:52→20:29)
[2018-02-24 07:23] LABS: Hematocrit 30.7 % (39.0-51.0); Hemoglobin 10.7 gm/dL (13.0-17.0); Mean Corpuscular HGB Conc 34.9 % (32.0-36.0); Mean Corpuscular Hemoglobin 35.7 pg (27.0-34.0); Mean Corpuscular Volume 102.4 fL (80.0-100.0); Mean Platelet Volume 7.9 fL (7.0-11.0); Platelet Count 164 th/mm3 (150-450); Red Cell Distribution Width 12.9 % (11.6-17.2); White Blood Count 16.8 th/mm3 (4.0-11.0)
[2018-02-24 07:58] LABS: Anion Gap 10 meq/L (5-15); Blood Urea Nitrogen 14 mg/dL (7-18); Carbon Dioxide 26.3 meq/L (21.0-32.0); Chloride 102 meq/L (98-107); Glomerular Filtration Rate Greater Than 89 mL/min (>89); Glucose,Random 89 mg/dL (74-106); Lipase 928 U/L (73-393); Potassium 3.4 meq/L (3.5-5.1); Sodium 138 meq/L (136-145)
[2018-02-24 08:04] LABS: Calcium 8.5 mg/dL (8.5-10.1)
[2018-02-24] MEDS: Pantoprazole Inj 40 MG Vial IV.PUSH SCH ×2 (08:28→20:29)
[2018-02-24] MEDS: Metoprolol Tartrate 50 MG Tablet PO SCH ×2 (08:29→20:29)
[2018-02-24] MEDS: Senna/Docusate Sodium 8.6/50 MG Tablet PO SCH ×2 (08:29→20:29)
[2018-02-24] MEDS: amLODIPine 5 MG Tablet PO SCH (10:13)
--- NOTE | 2018-02-24 14:16 | P.PNIM ---
Subjective Interval history: Patient reports that his pain is slightly improved. Blood pressure is uncontrolled. He states he has not seen a doctor for years due to lack of insurance so he does not know whether or not his had blood pressure problems. Physical Exam Vital signs: Vital Signs 02/23/18 15:00 02/23/18 15:06 02/23/18 15:40 Temperature 98.3 F Pulse Rate 99 H Respiratory Rate 18 18 Blood Pressure 172/119 H 158/116 H Pulse Oximetry 97 02/23/18 16:00 02/23/18 17:00 02/23/18 18:00 Temperature Pulse Rate 94 H 95 H 94 H Respiratory Rate Blood Pressure Pulse Oximetry 02/23/18 19:00 02/23/18 19:55 02/23/18 20:00 Temperature 97.6 F Pulse Rate 102 H 115 H Respiratory Rate 20 16 Blood Pressure 165/113 H Pulse Oximetry 97 02/23/18 21:00 02/23/18 22:00 02/23/18 23:00 Temperature Pulse Rate 103 H 92 H 96 H Respiratory Rate Blood Pressure Pulse Oximetry 02/23/18 23:22 02/24/18 00:00 02/24/18 01:00 Temperature 98.4 F Pulse Rate 95 H 93 H 91 H Respiratory Rate 18 Blood Pressure 186/112 H Pulse Oximetry 96 02/24/18 02:00 02/24/18 03:00 02/24/18 03:30 Temperature 99.8 F H Pulse Rate 91 H 87 98 H Respiratory Rate 16 Blood Pressure 158/109 H Pulse Oximetry 98 02/24/18 04:00 02/24/18 04:31 02/24/18 05:00 Temperature Pulse Rate 97 H 94 H Respiratory Rate 15 Blood Pressure Pulse Oximetry 02/24/18 06:00 02/24/18 07:00 02/24/18 08:00 Temperature 98.2 F Pulse Rate 97 H 102 H 104 H Respiratory Rate 16 Blood Pressure 180/107 H Pulse Oximetry 98 02/24/18 08:54 02/24/18 09:00 02/24/18 09:31 Temperature Pulse Rate 90 96 H Respiratory Rate 20 Blood Pressure Pulse Oximetry 02/24/18 10:13 02/24/18 10:31 02/24/18 12:00 Temperature 98.4 F Pulse Rate 89 94 H Respiratory Rate 16 Blood Pressure 172/107 H 166/108 H Pulse Oximetry 98 02/24/18 12:30 02/24/18 12:32 02/24/18 14:00 Temperature Pulse Rate 90 101 H Respiratory Rate Blood Pressure 156/97 H Pulse Oximetry 02/24/18 14:07 Temperature Pulse Rate 98 H Respiratory Rate Blood Pressure Pulse Oximetry Intake & Output 02/23/18 02/24/18 02/24/18 18:59 06:59 18:59 Intake Total 1200 / 1200 2240 / 2240 100 / 100 Output Total 650 / 650 Balance 1200 / 1200 1590 / 1590 100 / 100 Weight 83.3 kg Intake: IV 1200 / 1200 2000 / 2000 100 / 100 NS Inj 1,000 ML @ 100 mls/hr IV 1000 / 1000 2000 / 2000 .CONT .Q10H [facility] Rx#:[id number] Calcium Gluconate Inj 1 GM In 100 / 100 NS Inj 90 ML @ 100 mls/hr IV. SIG ONCE ONE Rx#:[id number] Maxipime Inj 1,000 MG In NS Inj 100 / 100 100 ML @ 200 mls/hr IV.SIG Q12H [facility] Rx#:[id number] Oral 240 / 240 Output: Urine 650 / 650 Other: Date of Last Bowel Movement 02/22/18 02/21/18 02/21/18 Narrative: GENERAL: This is a well-nourished, well-developed patient, in no apparent distress. CARDIOVASCULAR: Normal rate and regular rhythm without murmurs, gallops, or rubs. RESPIRATORY: Good respiratory efforts. Breath sounds equal and clear to auscultation bilaterally. GASTROINTESTINAL: Abdomen soft, tenderness to deep palpation in the midepigastric region. Normal active bowel sounds MUSCULOSKELETAL: Extremities without cyanosis, or edema. NEURO: Alert & Oriented x4 to person, place, time, situation. Moves all ext x4 PSYCH: Appropriate mood and affect. Results - Labs CBC & Chem 7: 02/24/18 06:07 02/24/18 06:07 Laboratory Results - last 24 hr 02/24/18 02/24/18 06:07 06:07 WBC 16.8 H RBC 3.00 L Hgb 10.7 L D Hct 30.7 L MCV 102.4 H MCH 35.7 H MCHC 34.9 RDW 12.9 Plt Count 164 D MPV 7.9 Sodium 138 Potassium 3.4 L D Chloride 102 Carbon Dioxide 26.3 Anion Gap 10 BUN 14 Creatinine 0.67 Estimated GFR Greater than 89 Random Glucose 89 Calcium 8.5 Lipase 928 H - Imaging Impressions Myocardial Perfusion Scan Nuc Med 02/23/18 00:00 CONCLUSION: 1. Mildly depressed ejection fraction 2. Negative for significant stress-induced ischemia. Assessment and Plan - Assessment (1) Pancreatitis Code(s): K85.90 - Acute pancreatitis without necrosis or infection, unspecified Status: Acute (2) Chest pain Code(s): R07.9 - Chest pain, unspecified Status: Acute (3) Lactic acidosis Code(s): E87.2 - Acidosis Status: Acute (4) A-fib Code(s): I48.91 - Unspecified atrial fibrillation Status: Acute - Plan 52-year-old male with: Acute pancreatitis: Probably alcoholic pancreatitis. He admits to drinking half a bottle of wine daily. CT of the abdomen shows moderate severity diffuse peripancreatic edema/stranding opacity in the peripancreatic fat. No organized peripherally enhancing fluid collection. 4 mm calcification in the region of the pancreatic head may be within the distal common duct or pancreatic head. -Lipase 11,000 on presentation. Down to 4000. -Continue supportive care with IV fluid. Pain control. -Check lipids Chest pain/elevated troponin: - Discussed with chief librarian branch, Dr. miramontes. Likely secondary to dehydration from pancreatitis. - Nuclear stress test negative. Hypertension: Uncontrolled. Does not take antihypertensives at home. - Continue metoprolol 50 mg twice daily. Systolic blood pressures were in the 200s on arrival. Suspect untreated hypertension. -Amlodipine added. Clonidine PRN. Afib: Brief episode. Back in sinus rhythm. Likely secondary to dehydration from pancreatitis. - Continue to monitor on telemetry. IV fluid. Leukocytosis and lactic acidosis: Leukocytosis quickly improved with IV hydration. Lactic acidosis resolved. - Do not suspect infection at this point. Empiric antibiotics discontinued. Alcohol abuse: - [facility] protocol. DVT Prophylaxis: SCD/Teds Discharge Planning: Probable discharge tomorrow morning. He will need follow-up outpatient with her PCP for hypertension.
--- NOTE | 2018-02-24 15:30 | ECHRPT ---
Indication: ATRIAL FIB CONCLUSIONS The left ventricular systolic function is normal with an estimated ejection fraction in the range of 60-65%. Normal left ventricular size. Wall thickness is normal. No regional wall motion abnormalities are present. Mild thickening of the mitral valve leaflets. Trace mitral valve regurgitation. Trivial pulmonary valve regurgitation. BP: / HR: Rhythm: Sinus MEASUREMENTS (Male / Female) Normal Values Technical Quality:Good 2D ECHO LV Diastolic Diameter PLAX 4.8 cm 4.2 - 5.9 / 3.9 - 5.3 cm LV Systolic Diameter PLAX 3.4 cm IVS Diastolic Thickness 1.0 cm 0.6 - 1.0 / 0.6 - 0.9 cm LVPW Diastolic Thickness 0.9 cm 0.6 - 1.0 / 0.6 - 0.9 cm LV Relative Wall Thickness 0.4 RV Internal Dim ED PLAX 2.9 cm LVOT Diameter 2.2 cm LA Systolic Diameter LX 3.5 cm 3.0 - 4.0 / 2.7 - 3.8 cm LV Ejection Fraction MOD 4C 65.7 % LV Ejection Fraction 4C AL 66.7 % M-MODE LV Diastolic Diameter MM 5.3 cm 4.2 - 5.9 / 3.9 - 5.3 cm LV Systolic Diameter MM 3.6 cm LV Ejection Fraction MM Teich 59.3 % IVS Diastolic Thickness MM 1.0 cm 0.6 - 1.0 / 0.6 - 0.9 cm LVPW Diastolic Thickness MM 1.0 cm 0.6 - 1.0 / 0.6 - 0.9 cm LV Relative Wall Thickness MM 0.4 0.24 - 0.42 / 0.22 - 0.42 Aortic Root Diameter MM 2.5 cm LA Systolic Diameter MM 3.6 cm LA Ao Ratio MM 1.4 AV Cusp Separation MM 1.6 cm DOPPLER AV Peak Velocity 126.0 cm/s AV Peak Gradient 6.4 mmHg LVOT Peak Velocity 93.8 cm/s LVOT Peak Gradient 3.5 mmHg AV Area Cont Eq pk 2.8 cm MV Area PHT 5.4 cm Mitral E Point Velocity 91.8 cm/s Mitral A Point Velocity 58.2 cm/s Mitral E to A Ratio 1.6 LV E' Lateral Velocity 7.4 cm/s Mitral E to LV E' Lateral Ratio 12.4 LV E' Septal Velocity 3.9 cm/s Mitral E to LV E' Septal Ratio 23.5 PV Peak Velocity 106.0 cm/s PV Peak Gradient 4.5 mmHg FINDINGS LEFT VENTRICLE The left ventricular systolic function is normal with an estimated ejection fraction in the range of 60-65%. Normal left ventricular size. Wall thickness is normal. No regional wall motion abnormalities are present. RIGHT VENTRICLE Normal right ventricular size and systolic function. LEFT ATRIUM The left atrial size is normal. RIGHT ATRIUM The right atrial size is normal. ATRIAL SEPTUM Normal atrial septal thickness without atrial level shunting by limited color doppler interrogation. AORTA The aortic root and proximal ascending aorta are normal in size on limited imaging. MITRAL VALVE Mild thickening of the mitral valve leaflets. Trace mitral valve regurgitation. AORTIC VALVE Trileaflet aortic valve. No aortic valve stenosis or regurgitation. TRICUSPID VALVE Structurally normal tricuspid valve. No tricuspid valve stenosis or regurgitation. PULMONARY VALVE Trivial pulmonary valve regurgitation. VESSELS The inferior vena cava is normal in size. PERICARDIUM No pericardial effusion. Yogi Sanchez (Electronically Signed) Final Date:24 February 2018 15:29
[2018-02-25] MEDS: HYDROmorphone PF Inj 2 MG/ML Vial IV.PUSH PRN ×4 (00:06→13:19)
[2018-02-25] MEDS: Sod Chloride 0.9% Inj 1,000 ML IV.CONT SCH ×4 (00:10→13:20)
[2018-02-25] MEDS: amLODIPine 5 MG Tablet PO SCH (08:47)
[2018-02-25] MEDS: Pantoprazole Inj 40 MG Vial IV.PUSH SCH (08:47)
[2018-02-25] MEDS: Metoprolol Tartrate 50 MG Tablet PO SCH (08:47)
[2018-02-25] MEDS: Senna/Docusate Sodium 8.6/50 MG Tablet PO SCH (08:49)
[2018-02-25 10:35] LABS: Hematocrit 27.4 % (39.0-51.0); Hemoglobin 9.5 gm/dL (13.0-17.0); Mean Corpuscular HGB Conc 34.6 % (32.0-36.0); Mean Corpuscular Hemoglobin 34.6 pg (27.0-34.0); Mean Corpuscular Volume 100.1 fL (80.0-100.0); Mean Platelet Volume 7.4 fL (7.0-11.0); Platelet Count 170 th/mm3 (150-450); Red Blood Count 2.73 mil/mm3 (4.50-5.90); Red Cell Distribution Width 12.5 % (11.6-17.2); White Blood Count 13.2 th/mm3 (4.0-11.0)
[2018-02-25 10:43] LABS: Anion Gap 8 meq/L (5-15); Blood Urea Nitrogen 12 mg/dL (7-18); Calcium 8.6 mg/dL (8.5-10.1); Carbon Dioxide 27.1 meq/L (21.0-32.0); Chloride 100 meq/L (98-107); Glomerular Filtration Rate Greater Than 89 mL/min (>89); Glucose,Random 91 mg/dL (74-106); Lipase 375 U/L (73-393); Sodium 135 meq/L (136-145)
[2018-02-25 12:45] VITALS: PULSE 96; RESP 18; O2SAT 100
--- NOTE | 2018-02-25 15:46 | P.DS ---
Date of admission: 02/22/18 19:03 Primary care physician: UNKNOWN Brief History from admission: HPI from the admitting physician: This is a 52-year-old male with no significant PMH who presented to ER with complaints of chest pain, epigastric pain in addition to nausea and vomiting. Notes pain is substernal/epigastric, severe, 10/10, non-radiating, associated w / nausea/vomiting. Denies fever, chills, cough or diarrhea. On arrival, BP 221 /107, HR 77, O2 sat 97% on RA, Afebrile. W BC 19.4. Hemoglobin 18. Chemistry essentially unremarkable. Lactic acid 5.3. Troponin negative. Lipase 11,168. UA negative for UTI. CXR with no acute findings. CT Abdomen/Pelvis moderate severity. Pancreatic edema indicating acute pancreatitis, calcification in pancreatic head or distal common duct, hepatic steatosis. While in ER pt noted to be in A-fib, HR 100's, no reported h/o A-fib. Patient update on day of discharge: 52-year-old male admitted with acute pancreatitis, elevated troponin. Evaluation and treatment course detailed below: Acute pancreatitis: Probably alcoholic pancreatitis. He admits to drinking half a bottle of wine daily. CT of the abdomen shows moderate severity diffuse peripancreatic edema/stranding opacity in the peripancreatic fat. No organized peripherally enhancing fluid collection. 4 mm calcification in the region of the pancreatic head may be within the distal common duct or pancreatic head. -Lipase 11,000 on presentation. Down to normal range. -Patient treated with supportive care including pain control and IV fluid. Symptoms improved. Chest pain/elevated troponin: - Discussed with production troubleshooter, Dr. miramontes. Likely secondary to dehydration from pancreatitis. - Nuclear stress test negative. Chest pain resolved. Hypertension: Undiagnosed/untreated /difficult to uncontrolled. Does not take antihypertensives at home. - Continue metoprolol 50 mg twice daily. Systolic blood pressures were in the 200s on arrival. Suspect untreated hypertension. -Amlodipine added and the dose titrated up. He will need outpatient follow-up with PCP with his blood pressure log to further titrate antihypertensives. This was discussed with the patient at length. He voiced understanding. Afib: Brief episode. Back in sinus rhythm. Likely secondary to dehydration from pancreatitis. -No further episodes of A. fib. Leukocytosis and lactic acidosis: Leukocytosis quickly improved with IV hydration. Lactic acidosis resolved. - No antibiotics Alcohol abuse: -Patient treated per [facility] protocol. DS: Diagnosis - Discharge Diagnosis (1) Pancreatitis Status: Acute (2) Chest pain Status: Acute (3) Lactic acidosis Status: Acute (4) A-fib Status: Acute DS: Medications - Discharge Medications Prescriptions: amlodipine [Norvasc] 10 mg PO DAILY #30 tab hydrocodone-acetaminophen [Tenmile] 1 tab PO Q6H PRN #12 tab PRN Reason: Pain (Scale Score 7-10) metoprolol tartrate 50 mg PO BID #60 tab pantoprazole [Protonix] 40 mg PO DAILY #30 tab DS: Summary Hospital Course: 52-year-old male with: Acute pancreatitis: Probably alcoholic pancreatitis. He admits to drinking half a bottle of wine daily. CT of the abdomen shows moderate severity diffuse peripancreatic edema/stranding opacity in the peripancreatic fat. No organized peripherally enhancing fluid collection. 4 mm calcification in the region of the pancreatic head may be within the distal common duct or pancreatic head. -Lipase 11,000 on presentation. Down to 4000. -Continue supportive care with IV fluid. Pain control. -Check lipids Chest pain/elevated troponin: - Discussed with production troubleshooter, Dr. miramontes. Likely secondary to dehydration from pancreatitis. - Nuclear stress test negative. Hypertension: Uncontrolled. Does not take antihypertensives at home. - Continue metoprolol 50 mg twice daily. Systolic blood pressures were in the 200s on arrival. Suspect untreated hypertension. -Amlodipine added. Clonidine PRN. Afib: Brief episode. Back in sinus rhythm. Likely secondary to dehydration from pancreatitis. - Continue to monitor on telemetry. IV fluid. Leukocytosis and lactic acidosis: Leukocytosis quickly improved with IV hydration. Lactic acidosis resolved. - Do not suspect infection at this point. Empiric antibiotics discontinued. Alcohol abuse: - [facility] protocol. DVT Prophylaxis: SCD/Teds - Time Spent with Patient Total time spent providing and/or coordinating discharge services: Less than 30 minutes - Quality: VTE Deep Vein Thrombosis/Pulmonary Embolism Present on Admission: No Exam Vital signs: Vital Signs 02/24/18 15:48 02/24/18 17:00 02/24/18 17:21 Temperature Pulse Rate 89 96 H 98 H Respiratory Rate Blood Pressure Pulse Oximetry 02/24/18 19:00 02/24/18 20:00 02/24/18 21:00 Temperature 98.8 F Pulse Rate 104 H 106 H 102 H Respiratory Rate 18 Blood Pressure 155/90 H Pulse Oximetry 99 02/24/18 22:00 02/24/18 23:00 02/24/18 23:57 Temperature 99.0 F Pulse Rate 88 94 H 95 H Respiratory Rate 18 Blood Pressure 158/99 H Pulse Oximetry 98 02/25/18 00:00 02/25/18 00:45 02/25/18 01:00 Temperature Pulse Rate 88 90 Respiratory Rate 18 Blood Pressure Pulse Oximetry 02/25/18 02:00 02/25/18 03:00 02/25/18 04:00 Temperature 98.7 F Pulse Rate 86 90 100 H Respiratory Rate 18 Blood Pressure 158/111 H Pulse Oximetry 99 02/25/18 04:27 02/25/18 05:00 02/25/18 06:00 Temperature Pulse Rate 114 H 93 H Respiratory Rate 18 Blood Pressure Pulse Oximetry 02/25/18 07:00 02/25/18 08:00 02/25/18 09:00 Temperature 98.4 F Pulse Rate 90 98 H 85 Respiratory Rate 19 Blood Pressure 159/102 H Pulse Oximetry 99 02/25/18 12:00 Temperature 97.4 F L Pulse Rate 82 Respiratory Rate 18 Blood Pressure 122/71 Pulse Oximetry 100 Intake & Output 02/24/18 02/25/18 02/25/18 18:59 06:59 18:59 Intake Total 2700 / 2700 1640 / 1640 1000 / 1000 Output Total 1450 / 1450 1775 / 1775 Balance 1250 / 1250 -135 / -135 1000 / 1000 Weight 84 kg Intake: IV 100 / 100 1400 / 1400 1000 / 1000 NS Inj 1,000 ML @ 100 mls/hr IV 1400 / 1400 1000 / 1000 .CONT .Q10H [facility] Rx#:[id number] Oral 2600 / 2600 240 / 240 Output: Urine 1450 / 1450 1775 / 1775 Other: Date of Last Bowel Movement 02/21/18 Results Procedures completed during hospitalization: None Labs on day of discharge: Labs from last 24 hours 02/25/18 02/25/18 10:13 10:13 WBC 13.2 H RBC 2.73 L Hgb 9.5 L Hct 27.4 L MCV 100.1 H MCH 34.6 H MCHC 34.6 RDW 12.5 Plt Count 170 MPV 7.4 Sodium 135 L Potassium 3.0 L Chloride 100 Carbon Dioxide 27.1 Anion Gap 8 BUN 12 Creatinine 0.64 Estimated GFR Greater than 89 Random Glucose 91 Calcium 8.6 Lipase 375 - Impressions ITS Impressions Abdomen/Pelvis CT 02/22/18 17:20 CONCLUSION: 1. Moderate severity peripancreatic edema indicating acute pancreatitis. Calcification in either the pancreatic head or distal common duct. 2. Hepatic steatosis. 3. Subpleural bleb in the left midlung. Chest X-Ray 02/22/18 17:20 CONCLUSION: No acute cardiopulmonary disease identified. Myocardial Perfusion Scan Nuc Med 02/23/18 00:00 CONCLUSION: 1. Mildly depressed ejection fraction 2. Negative for significant stress-induced ischemia. Discharge Plan - Discharge Disposition Patient Disposition: Discharge Home - Discharge Condition Condition: Fair - Discharge Order Discharge Orders: Discharge Order (Routine); Ordered 02/25/18 Ordered By: Blas Vallejo - Discharge Details Anticipated Discharge Date: 02/22/18 Discharge Comment: Follow up outpatient with PCP within 1 week. Keep a blood pressure log and bring to your PCP. Do not drink alcohol. - Physicians Team Primary Care Provider: UNKNOWN, Attending Provider: Blas Vallejo Other Providers: Zhang Miramontes MD
[2018-02-25 16:15] VITALS: BP 172/103; TEMP 98.1
== END 2018-02-25 16:15 | disposition home or self-care (01) ==
LOC: NEPE 17:05 → NEDA 19:03 → HCIS 22:50
PROVIDERS: ADMIT Family Medicine; ATTEND Family Medicine